=== PATIENT | female | born 1995 | race Caucasian/White ===

== ENCOUNTER 2023-10-28 05:18 | Inpatient (IN) | payer SELFPAY ==
[~2023-10-28 05:18] MED LIST: Oxytocin/Lactated Ringers 30 UNIT/500 ML BAG IV SCH; Sodium Chloride 0.9% 10 ML Syringe FLUSH PRN
[2023-10-28] MEDS: Lactated Ringers 1,000 ML IV SCH (05:50)
[2023-10-28 06:02] LABS: BASOPHILS PERCENT AUTO 0.2 % (0.0-1.0); EOSINOPHILS ABSOLUTE AUTO 0.1 K/mm3 (0.0-0.4); EOSINOPHILS PERCENT AUTO 1.2 % (0.0-6.0); HEMATOCRIT 32.4 % (37.0-47.0); HEMOGLOBIN 10.8 gm/dl (12.0-16.0); IMMATURE GRAN ABSOLUTE AUTO 0.01 K/mm3 (0.00-0.05); IMMATURE GRAN PERCENT AUTO 0.2 % (0.0-0.4); LYMPHOCYTES ABSOLUTE AUTO 2.6 K/mm3 (1.0-4.8); LYMPHOCYTES PERCENT AUTO 42.6 % (24.0-44.0); MEAN CORPUSCULAR HEMOGLOBIN 29.8 pg (28.0-32.0); MEAN CORPUSCULAR HGB CONC 33.3 g/dl (32.0-36.0); MEAN CORPUSCULAR VOLUME 89.3 fl (83.0-99.0); MEAN PLATELET VOLUME 11.4 fl (9.4-12.3); MONOCYTES ABSOLUTE AUTO 0.6 K/mm3 (0.0-0.8); NEUTROPHILS ABSOLUTE AUTO 2.8 K/mm3 (1.8-7.7); NEUTROPHILS PERCENT AUTO 45.8 % (41.0-71.0); PLATELET COUNT,PLT 194 K/mm3 (150-400); RED BLOOD CELL COUNT 3.63 M/mm3 (4.10-5.30); WHITE BLOOD CELL COUNT,WBC 6.01 K/mm3 (3.9-11.3)
[2023-10-28] MEDS ORDERED: ceFAZolin 2 GM Vial ONE (07:08)
[2023-10-28] MEDS ORDERED: Lactated Ringers 1,000 ML ONE ×2 (07:10→09:09)
[2023-10-28] MEDS ORDERED: ePHEDrine 50 MG/ML SDV ONE (07:12)
[2023-10-28] MEDS ORDERED: Ondansetron 4 MG/2 ML SDV ONE (07:13)
[2023-10-28] MEDS ORDERED: Ketorolac 30 MG/ML SDV ONE (07:13)
[2023-10-28] MEDS: Citric Acid/Sodium Citrate Solution 30 ML Cup PO ONE (07:14)
[2023-10-28] MEDS: Metoclopramide 10 MG/2 ML SDV IM ONE (07:34)
[2023-10-28] MEDS: Metoclopramide 10 MG/2 ML SDV IVPUSH ONE (07:37)
[2023-10-28] MEDS ORDERED: Morphine PF 10 MG/10 ML SDV ONE (07:42)
[2023-10-28] MEDS ORDERED: Lidocaine 1% 5 ML VIAL ONE (08:01)
[2023-10-28] MEDS ORDERED: ceFAZolin 1 GM Vial ONE (08:11)
[2023-10-28] MEDS ORDERED: Oxytocin 10 Units/1 ML SDV ONE ×2 (08:22→08:54)
[2023-10-28] MEDS ORDERED: Methylergonovine 0.2 MG/1 ML Amp ONE (08:35)
[2023-10-28] MEDS ORDERED: Sodium Chloride 0.9% 10 ML Syringe FLUSH SCH (09:00)
[2023-10-28] MEDS ORDERED: diphenhydrAMINE 50 MG/ML SDV IVPUSH PRN ×2 (09:16→10:28)
[2023-10-28] MEDS ORDERED: fentaNYL 100 MCG/2 ML SDV IVPUSH PRN (09:16)
[2023-10-28] MEDS ORDERED: ePHEDrine 50 MG/ML SDV IVPUSH PRN (10:28)
[2023-10-28] MEDS ORDERED: Naloxone 0.4 MG/ML SDV IVPUSH PRN (10:28)
[2023-10-28] MEDS ORDERED: Acetaminophen/oxyCODONE 325-5 MG Tab PO PRN ×2 (10:28)
[2023-10-28] MEDS: Dextrose 5%-Lactated Ringers 1,000 ML IV SCH (10:40)
[2023-10-28] MEDS: Bupivacaine 0.5% 30 ML SDV ONE (10:41)
[2023-10-28] MEDS: Ketorolac 30 MG/ML SDV IVPUSH SCH (15:01)
[2023-10-29 05:55] LABS: BASOPHILS PERCENT AUTO 0.2 % (0.0-1.0); EOSINOPHILS PERCENT AUTO 0.6 % (0.0-6.0); HEMATOCRIT 26.5 % (37.0-47.0); HEMOGLOBIN 8.8 gm/dl (12.0-16.0); IMMATURE GRAN ABSOLUTE AUTO 0.01 K/mm3 (0.00-0.05); IMMATURE GRAN PERCENT AUTO 0.2 % (0.0-0.4); LYMPHOCYTES ABSOLUTE AUTO 1.6 K/mm3 (1.0-4.8); LYMPHOCYTES PERCENT AUTO 25.4 % (24.0-44.0); MEAN CORPUSCULAR HEMOGLOBIN 29.5 pg (28.0-32.0); MEAN CORPUSCULAR HGB CONC 33.2 g/dl (32.0-36.0); MEAN CORPUSCULAR VOLUME 88.9 fl (83.0-99.0); MEAN PLATELET VOLUME 11.5 fl (9.4-12.3); MONOCYTES ABSOLUTE AUTO 0.5 K/mm3 (0.0-0.8); NEUTROPHILS ABSOLUTE AUTO 4.2 K/mm3 (1.8-7.7); NEUTROPHILS PERCENT AUTO 65.6 % (41.0-71.0); PLATELET COUNT,PLT 169 K/mm3 (150-400); RED BLOOD CELL COUNT 2.98 M/mm3 (4.10-5.30); WHITE BLOOD CELL COUNT,WBC 6.37 K/mm3 (3.9-11.3)
[2023-10-29] MEDS: Acetaminophen 325 MG Tab PO PRN (08:40)
[2023-10-29] MEDS: Ibuprofen 600 MG Tab PO PRN (13:03)
[2023-10-30] MEDS: fentaNYL 100 MCG/2 ML SDV IVPUSH ONE (18:50)
[2023-10-30 20:06] LABS: BASOPHILS PERCENT AUTO 0.3 % (0.0-1.0); EOSINOPHILS ABSOLUTE AUTO 0.1 K/mm3 (0.0-0.4); EOSINOPHILS PERCENT AUTO 1.7 % (0.0-6.0); HEMATOCRIT 27.5 % (37.0-47.0); HEMOGLOBIN 9.1 gm/dl (12.0-16.0); IMMATURE GRAN ABSOLUTE AUTO 0.01 K/mm3 (0.00-0.05); IMMATURE GRAN PERCENT AUTO 0.1 % (0.0-0.4); LYMPHOCYTES ABSOLUTE AUTO 2.1 K/mm3 (1.0-4.8); LYMPHOCYTES PERCENT AUTO 29.4 % (24.0-44.0); MEAN CORPUSCULAR HEMOGLOBIN 30.1 pg (28.0-32.0); MEAN CORPUSCULAR HGB CONC 33.1 g/dl (32.0-36.0); MEAN CORPUSCULAR VOLUME 91.1 fl (83.0-99.0); MEAN PLATELET VOLUME 10.9 fl (9.4-12.3); MONOCYTES ABSOLUTE AUTO 0.6 K/mm3 (0.0-0.8); MONOCYTES PERCENT AUTO 8.3 % (0.0-8.0); NEUTROPHILS ABSOLUTE AUTO 4.4 K/mm3 (1.8-7.7); NEUTROPHILS PERCENT AUTO 60.2 % (41.0-71.0); PLATELET COUNT,PLT 212 K/mm3 (150-400); RED BLOOD CELL COUNT 3.02 M/mm3 (4.10-5.30); WHITE BLOOD CELL COUNT,WBC 7.22 K/mm3 (3.9-11.3)
[2023-10-30] MEDS: Clindamycin Phosphate in D5W 900 MG in Premix Bag 1 BAG IV SCH (20:30)
[2023-10-31] MEDS: Ondansetron 4 MG/2 ML SDV IVPUSH PRN (09:11)
[2023-10-31] MEDS: Acetaminophen/oxyCODONE 325-5 MG Tab PO ONE (12:51)
== END 2023-10-31 16:45 | disposition home or self-care (01) | DRG 788 ==
LOC: JD.OB 05:18
PROVIDERS: ADMIT Obstetrics & Gynecology; ATTEND Obstetrics & Gynecology
PROC: 10D00Z1 Extraction of Products of Conception, Low, Open Approach (ICD-10-PCS; principal; 2023-10-28 08:00)
DX: O34.211 Maternal care for low transverse scar from previous cesarean delivery (principal); Z37.0 Single live birth; Z86.16 Personal history of COVID-19; Z3A.39 39 weeks gestation of pregnancy
CPT/HCPCS: 36415; 59025; 85025; 86592; 86850; 86900; 86901; 94762; 97161-GP; 97530-GP; A9270-GY; J0665; J0690; J0736; J1885; J2210; J2274; J2405; J2590; J2765; J3010; J3490; J7120; J7121